=== PATIENT | male | born 2000 | race Caucasian/White ===

== ENCOUNTER 2020-04-11 10:21 | Outpatient (CLI) | payer OTHER, SELFPAY ==
--- NOTE | 2020-04-11 10:20 | DI.RAD_ITS ---
EXAM: XR WRIST RT COMPL NAVICULAR CLINICAL HISTORY: pain TECHNIQUE: COMPARISON: No exams were available for comparison FINDINGS: Four views were obtained. Carpal alignment appears within normal limits except for question of minim al widening of the navicular lunate joint. Bones appear intact except the base the 5th metacarpal, there is deformity of the ulnar aspect of thi s bone which may represent old versus acute injury, a small ossicle is seen adjacent to the base of t he 5th metacarpal which appears fairly well corticated. IMPRESSION: Question old versus acute injury base of the 5th metacarpal. Please correlate clinically. Question slight widening navicular lunate joint. RADIATION DOSE DELIVERED: Total DLP Total DLP
== END 2020-04-11 10:41 ==
PROVIDERS: Visit Provider Orthopaedic Surgery
DX: M25.531 Pain in right wrist (principal); M21.931 Unspecified acquired deformity of right forearm
CPT/HCPCS: 73110